=== PATIENT | female | born 1995 ===

== ENCOUNTER 2022-04-09 13:45 | Outpatient (CLI) | payer MEDICAID | END 2022-04-09 13:46 | disposition home or self-care (01) | LOC: ULT 13:45 | PROVIDERS: ATTEND Nurse Practitioner Family | DX: N83.8 Other noninflammatory disorders of ovary, fallopian tube and broad ligament (principal); N94.89 Other specified conditions associated with female genital organs and menstrual cycle; N85.4 Malposition of uterus | CPT/HCPCS: 76856 ==